=== PATIENT | male | born 1995 | race Caucasian/White ===

== ENCOUNTER 2017-03-13 11:28 | Emergency (ER) | payer MEDICAID, OTHER ==
[~2017-03-13] VITALS: Ht 175.3 cm; Wt 65.0 kg
--- NOTE | 2017-03-13 11:35 | PD ---
Physical Exam Date Seen by Provider: Mar 13, 2017 Time Seen by Provider: 11:34 Narrative 21 yo male here for weakness. History of heat stroke in the past. Has been working outside a lot. Feels weak and has some abdominal discomfort. Keeping fluids down but does not want to eat. No nausea or vomit. No chest pain. Vitals are stable in triage. Awaiting bed placement. [facility] Medical Record Reviewed: Yes Supervised Visit with JOHN: No Cristino Flowers Mar 13, 2017 11:35
[2017-03-13 11:45] VITALS: BP 133/79; PULSE 86; RESP 17; TEMP 98.2; O2SAT 99
[2017-03-13] MEDS ORDERED: SODIUM CHLORIDE 0.9% FLUSH 10 ML FLUSH IVF PRN (11:45)
[2017-03-13] MEDS ORDERED: SODIUM CHLOR 0.9% 1000 ML INJ 1,000 ML IV ONE ×2 (11:45)
--- NOTE | 2017-03-13 11:49 | PD ---
HPI Chief Complaint: General Weakness Time Seen by Provider: 11:36 Travel History International Travel<30 days: No Contact w/Intl Traveler<30days: No Traveled to known affect area: No History of Present Illness HPI Patient is a 21-year-old male who presents to emergency room with complaints of generalized weakness. Patient reports that he works outside doing [employer] for [employer], reports that a few weeks ago, he suffered heatstroke. Patient reports that he was not seen in the emergency room, reports that he left work early and hydrated at home and did well. Patient reports that since Saturday, he has been feeling dehydrated. Patient reports that he has been trying to keep up with his fluids but he has been feeling nauseous and has been vomiting. Patient reports that he was at work today and could not tolerate any fluids. Reports that he feels weak and feels as if he is having that he is having a possible heat stroke. Patient reports decreased by mouth intake. Reports that he can drink water but doesn't have a desire to drink or eat. Patient denies any fevers or chills, denies any chest pain or shortness of breath. Patient denies any abdominal pain, denies any other complaints. Denies use of any drugs or alcohol. PFSH Past Medical History Medical History: Denies Significant Hx Past Surgical History Surgical History: No Previous Surgery Family History Family History: Negative Social History Alcohol Use: No Tobacco Use: No Substance Use: No Allergies-Medications (Allergen,Severity, Reaction): Coded Allergies: No Known Allergies (Unverified , 05/12/16) Reported Meds & Prescriptions Reported Meds & Active Scripts Active No Active Prescriptions or Reported Medications Review of Systems General / Constitutional: No: Fever Eyes: No: Visual changes HENT: No: Headaches Cardiovascular: No: Chest Pain or Discomfort Respiratory: No: Cough, Shortness of Breath Gastrointestinal: No: Abdominal Pain Genitourinary: No: Dysuria Musculoskeletal: Positive: Myalgias, Weakness, Cramping, No: Pain Skin: No Rash Neurologic: Positive: Weakness, No: Headache Psychiatric: No: Depression Endocrine: No: Polydipsia Hematologic/Lymphatic: No: Easy Bruising Physical Exam Narrative GENERAL: NAD SKIN: Focused skin assessment warm/dry. HEAD: Atraumatic. Normocephalic. EYES: Pupils equal and round. No scleral icterus. No injection or drainage. ENT: No nasal bleeding or discharge. Mucous membranes pink and moist. NECK: Trachea midline. No JVD. CARDIOVASCULAR: Regular rate and rhythm. No murmur appreciated. RESPIRATORY: No accessory muscle use. Clear to auscultation. Breath sounds equal bilaterally. GASTROINTESTINAL: Abdomen soft, non-tender, nondistended. Hepatic and splenic margins not palpable. MUSCULOSKELETAL: No obvious deformities. No clubbing. No cyanosis. No edema. NEUROLOGICAL: Awake and alert. No obvious cranial nerve deficits. Motor grossly within normal limits. Normal speech. PSYCHIATRIC: Appropriate mood and affect; insight and judgment normal. Data Data Last Documented VS Vital Signs Date Time Temp Pulse Resp B/P Pulse Ox O2 Delivery O2 Flow Rate FiO2 03/13/17 11:45 98.2 86 17 133/79 99 Room Air Orders Basic Metabolic Panel (Bmp) (03/13/17 11:43) Ckmb (Isoenzyme) Profile (03/13/17 11:43) Complete Blood Count With Diff (03/13/17 11:43) Sodium Chloride 0.9% Flush (Ns Flush) (03/13/17 11:45) Urinalysis - C+S If Indicated (03/13/17 11:43) Sodium Chlor 0.9% 1000 Ml Inj (Ns 1000 M (03/13/17 11:45) Sodium Chlor 0.9% 1000 Ml Inj (Ns 1000 M (03/13/17 11:45) CKMB (03/13/17 12:00) CKMB% (03/13/17 12:00) Labs Laboratory Tests Test 03/13/17 12:00 White Blood Count 10.2 TH/MM3 Red Blood Count 5.41 MIL/MM3 Hemoglobin 15.9 GM/DL Hematocrit 45.4 % Mean Corpuscular Volume 83.9 FL Mean Corpuscular Hemoglobin 29.4 PG Mean Corpuscular Hemoglobin 35.0 % Concent Red Cell Distribution Width 12.7 % Platelet Count 239 TH/MM3 Mean Platelet Volume 7.6 FL Neutrophils (%) (Auto) 72.4 % Lymphocytes (%) (Auto) 19.0 % Monocytes (%) (Auto) 7.9 % Eosinophils (%) (Auto) 0.4 % Basophils (%) (Auto) 0.3 % Neutrophils # (Auto) 7.4 TH/MM3 Lymphocytes # (Auto) 1.9 TH/MM3 Monocytes # (Auto) 0.8 TH/MM3 Eosinophils # (Auto) 0.0 TH/MM3 Basophils # (Auto) 0.0 TH/MM3 CBC Comment DIFF FINAL Differential Comment Urine Color YELLOW Urine Turbidity CLEAR Urine pH 6.5 Urine Specific [place] 1.030 Urine Protein 30 mg/dL Urine Glucose (UA) NEG mg/dL Urine Ketones 10 mg/dL Urine Occult Blood NEG Urine Nitrite NEG Urine Bilirubin NEG Urine Urobilinogen 4.0 MG/DL Urine Leukocyte Esterase NEG Urine RBC LESS THAN 1 /hpf Urine WBC LESS THAN 1 /hpf Urine Mucus FEW /lpf Microscopic Urinalysis Comment CULT NOT INDICATED Sodium Level 134 MEQ/L Potassium Level 3.9 MEQ/L Chloride Level 96 MEQ/L Carbon Dioxide Level 27.2 MEQ/L Anion Gap 11 MEQ/L Blood Urea Nitrogen 18 MG/DL Creatinine 1.24 MG/DL Estimat Glomerular Filtration 75 ML/MIN Rate Random Glucose 93 MG/DL Calcium Level 9.8 MG/DL Total Creatine Kinase 306 U/L Creatine Kinase MB 3.6 NG/ML MDM Medical Decision Making Medical Screen Exam Complete: Yes Emergency Medical Condition: Yes Interpretation(s) Vital Signs Date Time Temp Pulse Resp B/P Pulse Ox O2 Delivery O2 Flow Rate FiO2 03/13/17 11:45 98.2 86 17 133/79 99 Room Air Differential Diagnosis Differential includes rhabdomyolysis, dehydration, electrolyte abnormality, gastroenteritis, gastritis Narrative Course 21-year-old male who presents to emergency room with complaints of generalized weakness. 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 he feels as if he cannot keep up with his fluid intake. Patient reports that he has at work today and began to feel dehydrated. Patient reports overall generalized weakness, no focal complaints. Vital Signs Date Time Temp Pulse Resp B/P Pulse Ox O2 Delivery O2 Flow Rate FiO2 03/13/17 11:45 98.2 86 17 133/79 99 Room Air Patient nontoxic and evaluation, plan to obtain lab work and give IVF. Will check for rhabdo Laboratory Tests Test 03/13/17 12:00 White Blood Count 10.2 TH/MM3 (4.0-11.0) Red Blood Count 5.41 MIL/MM3 (4.50-5.90) Hemoglobin 15.9 GM/DL (13.0-17.0) Hematocrit 45.4 % (39.0-51.0) Mean Corpuscular Volume 83.9 FL (80.0-100.0) Mean Corpuscular Hemoglobin 29.4 PG (27.0-34.0) Mean Corpuscular Hemoglobin 35.0 % Concent (32.0-36.0) Red Cell Distribution Width 12.7 % (11.6-17.2) Platelet Count 239 TH/MM3 (150-450) Mean Platelet Volume 7.6 FL (7.0-11.0) Neutrophils (%) (Auto) 72.4 % (16.0-70.0) Lymphocytes (%) (Auto) 19.0 % (9.0-44.0) Monocytes (%) (Auto) 7.9 % (0.0-8.0) Eosinophils (%) (Auto) 0.4 % (0.0-4.0) Basophils (%) (Auto) 0.3 % (0.0-2.0) Neutrophils # (Auto) 7.4 TH/MM3 (1.8-7.7) Lymphocytes # (Auto) 1.9 TH/MM3 (1.0-4.8) Monocytes # (Auto) 0.8 TH/MM3 (0-0.9) Eosinophils # (Auto) 0.0 TH/MM3 (0-0.4) Basophils # (Auto) 0.0 TH/MM3 (0-0.2) CBC Comment DIFF FINAL Differential Comment Urine Color YELLOW (YELLW/STRAW) Urine Turbidity CLEAR (CLEAR) Urine pH 6.5 (5.0-8.5) Urine Specific [place] 1.030 (1.002-1.035) Urine Protein 30 mg/dL (NEG-TRACE) Urine Glucose (UA) NEG mg/dL (NEG) Urine Ketones 10 mg/dL (NEG) Urine Occult Blood NEG (NEG) Urine Nitrite NEG (NEG) Urine Bilirubin NEG (NEG) Urine Urobilinogen 4.0 MG/DL (LESS THAN 2.0) Urine Leukocyte Esterase NEG (NEG) Urine RBC LESS THAN 1 /hpf (0-3) Urine WBC LESS THAN 1 /hpf (0-5) Urine Mucus FEW /lpf (OCC) Microscopic Urinalysis Comment CULT NOT INDICATED Sodium Level 134 MEQ/L (136-145) Potassium Level 3.9 MEQ/L (3.5-5.1) Chloride Level 96 MEQ/L (98-107) Carbon Dioxide Level 27.2 MEQ/L (21.0-32.0) Anion Gap 11 MEQ/L (5-15) Blood Urea Nitrogen 18 MG/DL (7-18) Creatinine 1.24 MG/DL (0.60-1.30) Estimat Glomerular Filtration 75 ML/MIN (>89) Rate Random Glucose 93 MG/DL (74-106) Calcium Level 9.8 MG/DL (8.5-10.1) Total Creatine Kinase 306 U/L (39-308) Creatine Kinase MB 3.6 NG/ML (0.5-3.6) Patient reevaluated, patient feeling much better at this time. Patient tolerating oral fluids at this time. Patient will follow-up with his primary care doctor and will return to emergency room as needed. I encouraged patient to drink plenty of fluids while at home and at work Diagnosis Primary Impression: Dehydration Additional Impression: Generalized weakness Patient Instructions: General Instructions Departure Forms: Tests/Procedures, Work Release Enter return to work date: Mar 18, 2017 Additional Instructions: Please drink plenty of fluids Return to ER as needed Please follow up with your primary care doctor Scripts No Active Prescriptions or Reported Meds Disposition: 01 DISCHARGE HOME Condition: Stable Virginie Hilton DO Mar 13, 2017 11:49
[2017-03-13 12:06] LABS: AUTOMATED NEUTROPHIL # 7.4 TH/MM3 (1.8-7.7); BASOPHIL % 0.3 % (0.0-2.0); EOSINOPHIL % 0.4 % (0.0-4.0); HEMATOCRIT 45.4 % (39.0-51.0); HEMO FLAGS DIFF FINAL; LYMPHOCYTE # 1.9 TH/MM3 (1.0-4.8); MEAN CELL VOLUME 83.9 FL (80.0-100.0); MEAN CORPUSCULAR HEMOGLOBIN 29.4 PG (27.0-34.0); MONO % 7.9 % (0.0-8.0); NEUT % 72.4 % (16.0-70.0); PLATELET COUNT 239 TH/MM3 (150-450); RED BLOOD COUNT 5.41 MIL/MM3 (4.50-5.90); RED CELL DISTRIBUTION WIDTH 12.7 % (11.6-17.2); WHITE BLOOD COUNT 10.2 TH/MM3 (4.0-11.0)
[2017-03-13 12:21] LABS: BLOOD, URINE NEG (NEG); COMMENT (UR) CULT NOT INDICATED; CULTURE IF INDICATED CULT NOT INDICATED; GLUCOSE,URINE NEG (NEG); KETONE, URINE 10 mg/dL (NEG); MUCUS URINE FEW /lpf (OCC); NITRITE,URINE NEG (NEG); PH, URINE 6.5 (5.0-8.5); URINE COLOR YELLOW (YELLW/STRAW)
[2017-03-13 12:40] LABS: ANION GAP 11 MEQ/L (5-15); BICARBONATE 27.2 MEQ/L (21.0-32.0); BLOOD UREA NITROGEN 18 MG/DL (7-18); CHLORIDE 96 MEQ/L (98-107); GLOMERULAR FILTRATION RATE 75 ML/MIN (>89); POTASSIUM 3.9 MEQ/L (3.5-5.1); SODIUM (NA) 134 MEQ/L (136-145)
[2017-03-13 12:42] LABS: CREATINE KINASE 306 U/L (39-308)
[2017-03-13 13:11] LABS: CKMB 3.6 NG/ML (0.5-3.6)
[2017-03-13 14:50] VITALS: BP 134/88; TEMP 97.6
== END 2017-03-13 14:58 | disposition home or self-care (01) ==
LOC: NEPD 11:28
DX: E86.0 Dehydration (principal)
CPT/HCPCS: 80048; 81001; 82550; 82552; 85025; 96360; 99284; J7030